=== PATIENT | female | born 1995 | race Asian ===

== ENCOUNTER 2022-03-11 07:49 | Emergency (ER) | payer MEDICAID ==
[~2022-03-11] VITALS: Ht 160 cm; Wt 47.6 kg
[2022-03-11] MEDS ORDERED: LORAZEPAM 1 MG TABLET PO ONE (08:00)
--- NOTE | 2022-03-11 08:00 | NUR ---
TO ER 11 FOR MD ORTIZ,SUICIDE PRECAUTION,1:1 SITTER
[2022-03-11] MEDS ORDERED: LORAZEPAM 1 MG TABLET ONE (08:04)
--- NOTE | 2022-03-11 08:09 | NUR ---
URINE COLLECTED AND SENT
--- NOTE | 2022-03-11 08:13 | NUR ---
COVID TEST COLLECTED AND SENT
--- NOTE | 2022-03-11 08:14 | NUR ---
LAB AT BEDSIDE
[2022-03-11 08:25] LABS: BASOPHILS % (AUTO) 0.1 % (0.0-2.0); EOSINOPHILS % (AUTO) 3.1 % (0.0-6.0); HEMATOCRIT 42 % (33-45); HEMOGLOBIN 13.5 g/dL (11.5-14.8); LYMPHOCYTES # (AUTO) 0.9 K/uL (0.8-4.8); LYMPHOCYTES % (AUTO) 11.5 % (20.0-44.0); MEAN CORPUSCULAR HGB CONC 33 g/dl (31.0-36.0); MEAN CORPUSCULAR VOLUME 86 fL (82-100); MONOCYTES # (AUTO) 0.4 K/uL (0.1-1.30); NEUTROPHILS # (AUTO) 6.1 K/uL (1.8-8.9); NEUTROPHILS % (AUTO) 80.3 % (43.0-81.0); PLATELET COUNT (AUTO) 239 K/uL (150-450); RED BLOOD CELL COUNT(AUTO) 4.84 MIL/uL (4.0-5.2); WHITE BLOOD COUNT (AUTO) 7.6 K/uL (4.3-11.0)
[2022-03-11 08:31] LABS: BILIRUBIN,URINE NEGATIVE (NEGATIVE); COLOR,URINE YELLOW (YELLOW); LEUKOCYTE ESTERASE ,URINE NEGATIVE (NEGATIVE); NITRITE, URINE NEGATIVE (NEGATIVE); PH,URINE 6.5 (5.0-8.0); PROTEIN,URINE NEGATIVE (NEGATIVE); UGLUCOSE NEGATIVE (NEGATIVE); UROBILINOGEN,URINE 0.2 EU/dL (0.2)
[2022-03-11 08:33] LABS: CALCIUM, SERUM 9.6 mg/dL (8.5-10.1); CARBON DIOXIDE 28 mmol/L (21-32); CHLORIDE 102 mmol/L (98-107); CREATININE 0.9 mg/dL (0.6-1.3); GLUCOSE 95 mg/dL (74-106); POTASSIUM 3.6 mmol/L (3.5-5.1); SODIUM SERUM 137 mmol/L (136-145); UREA NITROGEN, BLOOD 12 mg/dL (7-18)
[2022-03-11 08:39] LABS: ALANINE AMINOTRANSFERASE 19 U/L (12-78); ALBUMIN 4.7 g/dL (3.4-5.0); ALKALINE PHOSPHATASE 79 U/L (46-116); ASPARTATE AMINOTRANSFERASE 20 U/L (15-37); BILIRUBIN,TOTAL 0.9 mg/dL (0.2-1.0)
[2022-03-11 08:44] LABS: BACTERIA,URINE None seen /HPF (None Seen); SQUAMOUS EPITHELIAL CELL,UR None Seen /HPF (None Seen); WBC,URINE NONE SEEN /HPF (0-3)
[2022-03-11 09:21] LABS: BILIRUBIN,DIRECT 0.2 mg/dL (0.0-0.2)
[2022-03-11 10:03] LABS: ACETAMINOPHEN < 10 ug/ml (10-30)
[2022-03-11 10:04] LABS: ALCOHOL, BLOOD < 3 mg/dL (0-0)
--- NOTE | 2022-03-11 10:41 | NUR ---
SS consult: SS Consult requested for SI. The pt. is a 26-year-old transmale patient who came into ED due to SI after argument with his girlfriend and he tied a belt around his neck. Upon SS consult, the pt. is Alert & Oriented x 4 and makes good eye contact. Pt. prefers to go by the name: Homero. Pt. denies HI. Pt. states he has intermittent auditory hallucinations with a commanding voice and sporadic visual hallucination of a spirit. The pt.'s thought process and speech are WNL. The pt. is attention seeking, with depressed mood & affect. Pt.'s remains compliant throughout interview. Per patient, he had an argument with his girlfriend prior to having SI regarding their living situation with his grandmother at [[address] [facility] [address]; [phone]]. Per pt. his girlfriend, Halie felt that the grandmother was "hovering and asking too many questions about their employment situation". Per pt. he has been in [place] about 1 week and recently moved here. Per pt. he and his girlfriend were struggling in finding employment in their hometown. Per pt. he went to his car after said argument and tied a belt around his neck and stopped as the thought of leaving his little sister made his reconsider. Pt. discussed his grandfather commited suicide. SW used active listening, validated his feeling and encouraged him to seek psychiatric tratement. Pt. agreed to voluntary treatment at [facility]. SW explored pt.'s mental health Hx. Patient states he has been diagnosed with Anxiety, depression, and borderline personality disorder. SW provided resources for mental health services: therapy, psychiatry and pt. accepted them. SW explored pt.'s drug & ETOH use. Pt. denies use of alcohol and drugs except for Cannabis. pt. states he smoked joints and does not feel it is a problem for him. Per pt. he is ambulatory and independent with all his ADL's. SW explored pt.'s support system. Pt. states he his grandmother and girlfriend are his only support system. Plan: Pt. states he is willing to go to a psychiatric hospital on a voluntary basis for treatment. Pt.referred pt. to [facility] [[address] [place], [place] [id number] FAX:[phone]] for inpatient psychiatric treatment. SW provided pt. with the following resources: MAGO GONZALES [facility] [address] [place] [address] Mental Health Services Raven Nikita Colome [address] [place] [address] Services: Outpatient therapy for children, teens, young adults, adults, older adults, and families; Psychiatric services, medication support [place] Crisis and Hotline Telephone Numbers: 24-Hour service unless stated [place] Mental Health/Crisis Line........[phone] Suicide Prevention Center (24 Hours).......[phone] Suicide Prevention Crisis Center.......[phone] (24 Hours) Alcoholics Anonymous (24 Hours)..........[phone] National Crisis Hotlines: Alcohol and Drug Helpline - Provides referrals to local facilities where adolescents and adults can seek help. Brief intervention. LUCERO Helpline [facility] [place] [facility] 9-305-120-LUCERO National Youth Crisis Hotline [facility] [facility]. Provides free information on specific disorders, referral directory to mental health providers, national directory of local mental health associations (M-F, 9-5 EST) National [place] of Mental Health Information Line: Provide sinformation and literature on mental illness by disorder-for professionals and general public. Counseling--Outpatient [facility] [address] [facility] [place] [address] (Specializes in in-depth psychotherapy for emotional distress: anxiety, depression, interpersonal conflicts, life transitions, childhood abuse) [facility] [address] [place] [address] (Assist with solving problem marital difficulties, separation & divorce, aging parents, & grief, chronic & terminal illness) [facility] [address] [place] [address] (Deal with loss & grief, anxiety, marital difficulties) [facility] [address] [place] [address] (Provide in-home mental services to people who are incapable of leaving their homes) [facility] [address] [place] [address] [facility] [address] [place], [place] [id number] PSYCHIATRIC OUTPATIENT SERVICES [facility] Partial Hospitalization and Intensive Outpatient Program (Managed Care and [place] Only) [address] [facility] [address]; [phone] [facility] Partial Hospitalization and Outpatient Program [address] [place] [address]; [phone] [facility] [id number] [place], [place] [phone] [facility] Partial Hospitalization and Outpatient [address] [place], [place] ; [phone] ;[phone]
--- NOTE | 2022-03-11 14:00 | NUR ---
ALFREDO called [facility] TEL:[phone] to get update regarding admission to [facility] and was told they need a test completed. ALFREDO notified Brandt Bennett.
--- NOTE | 2022-03-11 16:09 | NUR ---
PT ACCEPTED TO [facility] [address]. REPORT CAN BE GIVEN TO [phone] EXTENSION 240.
--- NOTE | 2022-03-11 16:31 | NUR ---
ATTEMPTED TO CALL [facility] TO GIVE REPORT, NO ANSWER. WILL ATTEMPT AT A LATER TIME.
--- NOTE | 2022-03-11 16:48 | NUR ---
CALLED [facility] AND SET UP BLS TRANSPORT ERTA 1800
--- NOTE | 2022-03-11 16:58 | NUR ---
REPORT GIVEN TO OBEY AT [facility]
[2022-03-11 17:00] VITALS: BP 126/71
--- NOTE | 2022-03-11 18:34 | NUR ---
REPORT GIVEN TO AMBULANCE STAFF
--- NOTE | 2022-03-11 18:35 | NUR ---
THE PATIENT IS TRANSFERED TO [facility] IN STABLE CONDITION VIA ARRANGED TRANSPO.
== END 2022-03-11 18:36 ==
LOC: ER 07:50
DX: F29 Unspecified psychosis not due to a substance or known physiological condition (principal); Z20.822 Contact with and (suspected) exposure to COVID-19
CPT/HCPCS: 36415; 80048; 80076; 80143; 80307; 80320; 81001; 85025; 87426; 99285; C9803; G0480